=== PATIENT | female | born 2000 | race American Indian/Alaskan Native ===

== ENCOUNTER 2022-02-27 11:19 | Emergency (ER) | payer MEDICAID ==
[2022-02-27 15:17] LABS: HCG Qualitative,Urine Negative (Negative)
[2022-02-27 15:18] LABS: Bacteria,Urine 1+ /HPF (Negative); Mucus,Urine FEW /HPF
[2022-02-27 15:21] LABS: Bilirubin,Urine Negative (Negative); Blood,Urine Negative (Negative); Color,Urine Straw (Yellow); Protein,Urine <15 mg/dL mg/dL (Negative); Urobilinogen,Urine < 2.0 mg/dL (<2.0)
--- NOTE | 2022-02-27 15:55 | Emergency Department Report ---
ED Female HPI - General Chief complaint: Urogenital-Female Stated complaint: SWOLLEN LUMP/INSIDE VAGINA Time Seen by Provider: 02/27/22 14:43 Source: patient Mode of arrival: Ambulatory Limitations: No Limitations - History of Present Illness Initial comments: 21-year-old female presents to the ED complaining vaginal irritation. Patient states that she has recurrent bacterial vaginosis. She states that she has been noticing foul odor and mild swelling to her labia area. Patient states she use Dial antibacterial soap to rinse her vaginal area daily. Patient denies any abdominal pain, dysuria or chills or nausea or vomiting at present. Patient is alert and oriented x3. No acute distress noted. No ill appearance noted. MD Complaint: vaginal discharge Onset/Timin -: days(s) Improves with: none Worsens with: none Are you Now?: No - Related Data Previous Rx's Medication Instructions Recorded Last Taken Type Acetaminophen [Tylenol] 500 mg PO Q6HR PRN #30 tablet 05/03/20 Unknown Rx Famotidine [Pepcid] 20 mg PO Q12H #30 tablet 05/03/20 Unknown Rx Metoclopramide [Reglan] 10 mg PO Q6H PRN #30 tab 05/03/20 Unknown Rx Promethazine [Phenergan] 25 mg MN Q6HR PRN #30 supp.rect 05/03/20 Unknown Rx cephALEXin [Keflex] 500 mg PO Q8HR #30 cap 05/03/20 Unknown Rx Terconazole [Terazol 7 Vag Cream] 1 applicator VG QHS 7 Days #7 02/27/22 Unknown Rx applicator metroNIDAZOLE [Flagyl] 500 mg PO Q12HR 7 Days #14 tab 02/27/22 Unknown Rx Allergies Allergy/AdvReac Type Severity Reaction Status Date / Time No Known Allergies Allergy Unverified 05/03/20 03:57 ED Review of Systems ROS: Stated complaint: SWOLLEN LUMP/INSIDE VAGINA Other details as noted in HPI Constitutional: denies: chills, fever Eyes: denies: eye pain, eye discharge, vision change ENT: denies: ear pain, throat pain Respiratory: denies: cough, shortness of breath, wheezing Cardiovascular: denies: chest pain, palpitations Endocrine: no symptoms reported Gastrointestinal: denies: abdominal pain, nausea, diarrhea Genitourinary: discharge. denies: urgency, dysuria Musculoskeletal: denies: back pain, joint swelling, arthralgia Skin: denies: rash, lesions Neurological: denies: headache, weakness, paresthesias Psychiatric: denies: anxiety, depression Hematological/Lymphatic: denies: easy bleeding, easy bruising ED Past Medical Hx - Past Medical History Previous Medical History?: Yes Hx Asthma: Yes - Surgical History Past Surgical History?: No - Social History Smoking Status: Never Smoker - Medications Home Medications: Home Medications Medication Instructions Recorded Confirmed Last Taken Type Acetaminophen [Tylenol] 500 mg PO Q6HR PRN #30 tablet 05/03/20 Unknown Rx Famotidine [Pepcid] 20 mg PO Q12H #30 tablet 05/03/20 Unknown Rx Metoclopramide [Reglan] 10 mg PO Q6H PRN #30 tab 05/03/20 Unknown Rx Promethazine [Phenergan] 25 mg MN Q6HR PRN #30 supp.rect 05/03/20 Unknown Rx cephALEXin [Keflex] 500 mg PO Q8HR #30 cap 05/03/20 Unknown Rx Terconazole [Terazol 7 Vag Cream] 1 applicator VG QHS 7 Days #7 02/27/22 Unknown Rx applicator metroNIDAZOLE [Flagyl] 500 mg PO Q12HR 7 Days #14 tab 02/27/22 Unknown Rx ED Physical Exam - General Limitations: No Limitations General appearance: alert, in no apparent distress - Head Head exam: Present: atraumatic, normocephalic - Eye Eye exam: Present: normal appearance - ENT ENT exam: Present: mucous membranes moist - Neck Neck exam: Present: normal inspection - Respiratory Respiratory exam: Present: normal lung sounds bilaterally. Absent: respiratory distress - Cardiovascular Cardiovascular Exam: Present: regular rate, normal rhythm. Absent: systolic murmur, diastolic murmur, rubs, gallop - GI/Abdominal GI/Abdominal exam: Present: soft, normal bowel sounds - Speculum exam: Present: vaginal discharge - Extremities Exam Extremities exam: Present: normal inspection - Back Exam Back exam: Present: normal inspection - Neurological Exam Neurological exam: Present: alert, oriented X3 - Psychiatric Psychiatric exam: Present: normal affect, normal mood - Skin Skin exam: Present: warm, dry, intact, normal color. Absent: rash ED Course Vital Signs 02/27/22 02/27/22 11:50 14:43 Temperature 98.8 F Pulse Rate 67 Respiratory 20 Rate Blood Pressure 108/74 [Right] O2 Sat by Pulse 96 98 Oximetry ED Medical Decision Making - Medical Decision Making 21-year-old female presents to the ED complaining vaginal irritation. Patient states that she has recurrent bacterial vaginosis. She states that she has been noticing foul odor and mild swelling to her labia area. Patient states she use Dial antibacterial soap to rinse her vaginal area daily. Patient denies any abdominal pain, dysuria or chills or nausea or vomiting at present. Patient is alert and oriented x3. No acute distress noted. No ill appearance noted. Pelvic examination patient has white discharge noted with mild odorous. Wet prep is present for be bacterial vaginosis. Rechecked the patient is resting quietly quietly and comfortable and feeling better. I discussed the results of diagnostic study, my clinical impression and the plan for further treatment with the patient. Patient agrees with plan and discharge at this present time. All question addressed. I have given the patient instruction regarding a diagnosis ,expectation ,follow- up and return precaution. I explained to the patient that emergent condition may arise and to return to the ED for new worsen and any new persisting condition. I have explained the importance of following up with the primary care physician or referral physician listed below has instructed. The patient verbalized understanding of discharge instruction. Critical care attestation.: If time is entered above; I have spent that time in minutes in the direct care of this critically ill patient, excluding procedure time. ED Disposition Clinical Impression: Bacterial vaginosis Disposition: 01 HOME / SELF CARE / HOMELESS Is pt being admited?: No Does the pt Need Aspirin: No Condition: Stable Instructions: Bacterial Vaginosis (ED), Bacterial Vaginosis, [id number], Antibiotic Medicine, Adult, [id number], Vaginitis, [id number] Additional Instructions: Take medication as prescribed Return to the ED for any worsening symptom Prescriptions: Terconazole [Terazol 7 Vag Cream] 1 applicator VG QHS 7 Days #7 applicator metroNIDAZOLE [Flagyl] 500 mg PO Q12HR 7 Days #14 tab Referrals: [facility] [Provider Group] - 3-5 Days Forms: STI Treatment and Prevention Time of Disposition: 15:58
[2022-02-27 16:19] VITALS: BP 118/78
== END 2022-02-27 16:17 | disposition home or self-care (01) ==
LOC: ED 11:19
DX: B96.89 Other specified bacterial agents as the cause of diseases classified elsewhere (principal); N76.0 Acute vaginitis
CPT/HCPCS: 81001; 81025; 87210; 99283